=== PATIENT | female | born 1965 | race Hispanic/Latino ===

== ENCOUNTER 2016-05-23 13:43 | Observation (INO) | payer SELFPAY ==
[~2016-05-23] VITALS: Ht 165.1 cm; Wt 88.5 kg
[~2016-05-23 13:43] MED LIST: ASPIR-TRIN325 M1 PO; Atarax,Vistaril PO; BIOTIN5 MG PO; EFFEXOR75 MG PO; FLEXERIL10 MG PO; GEODON40 MG PO; LAMISIL250 MG PO; LEXAPRO10 MG PO; LOPRESSOR25 MG PO; MOTRIN600 MG PO; Pepcid PO; VICODIN,LORT1 TABLET PO; VITAMIN B-121000 MCG PO; ZANTAC150 M1 PO
[2016-05-23 15:43] LABS: HEMATOCRIT 36.2 % (36.0-46.0); MCH 24.8 PG (29.0-34.0); MCHC 32.3 G/DL (30.0-36.0); MCV 76.9 FL (83-99); MEAN PLAT.VOLUME 10.7 uM^3 (9.5-12.4); PLATELET COUNT 325 K/uL (156-360); RBC DIS.WIDTH-CV 13.4 % (11.8-14.6); RBC DIS.WIDTH-SD 36.7 % (39-53); RED BLOOD COUNT 4.71 M/uL (3.80-5.20); WHITE BLOOD COUNT 9.2 K/uL (4.1-10.2)
[2016-05-23 15:56] LABS: CHLORIDE 108 mEq/L (99-109); POTASSIUM 3.7 mEq/L (3.7-5.4); SODIUM 139 mEq/L (136-147)
[2016-05-23 15:57] LABS: GLUCOSE 136 mg/dL (70-99)
[2016-05-23 15:59] LABS: ANION GAP 9 MEQ/L (2-14)
[2016-05-23 16:01] LABS: GFR ESTIMATE (CALCULATED) > 59 mL/min/
[2016-05-23 16:02] LABS: TROP-I INTERPRETATION NEGATIVE; TROPONIN-I < 0.01 ng/mL (0.0-0.30); UREA NITROGEN (BUN) 9 mg/dL (9-23)
[2016-05-23] MEDS ORDERED: TYLENOL EXTRA500 MG PO (19:31)
[2016-05-23] MEDS ORDERED: B COMPLETE1 EACH PO (19:31)
[2016-05-23 22:38] VITALS: BP 174/79
[2016-05-23 23:09] LABS: TROP-I INTERPRETATION NEGATIVE; TROPONIN-I < 0.01 ng/mL (0.0-0.30)
[2016-05-24 04:14] VITALS: BP 160/84
[2016-05-24 05:35] LABS: TROP-I INTERPRETATION NEGATIVE; TROPONIN-I < 0.01 ng/mL (0.0-0.30)
[2016-05-24 05:55] LABS: HDL CHOLESTEROL 52 MG/DL (Desirable>=50); LDL CHOLESTEROL 66 mg/dL (Desirable<100); NON-HDL CHOLESTEROL 105 mg/dL (Desirable<160); TOTAL CHOLESTEROL 157 mg/dL (Desirable<200); TRIGLYCERIDES 194 MG/DL (Normal: <150)
[2016-05-24 06:23] VITALS: BP 142/88
[2016-05-24 07:00] LABS: Estimated Average Glucose 140 mg/dL (70-123); HEMOGLOBIN A1c (GLYCOHEMOGLOB) 6.5 % HGB (Below 5.7)
[2016-05-24 07:45] VITALS: BP 154/79
[2016-05-24] MEDS ORDERED: PERCOCET 5/31 TABLET PO (08:34)
[2016-05-24 08:58] LABS: POINT-OF-CARE METER ID UU13113700
== END 2016-05-24 10:16 | disposition home or self-care (01) ==
LOC: EME 13:43 → EDOF 20:58 → 5WEST 22:14
PROVIDERS: Internal Medicine; Physician Assistant Medical
DX: R07.89 Other chest pain (principal); E11.65 Type 2 diabetes mellitus with hyperglycemia; I10 Essential (primary) hypertension; Z82.49 Family history of ischemic heart disease and other diseases of the circulatory system; R53.83 Other fatigue; R42 Dizziness and giddiness; R51 Headache; Z91.14 Patient's other noncompliance with medication regimen
CPT/HCPCS: 71020; 80048; 80061; 82948; 83036; 84484; 85027; 93005; 99281; 99285; G0378; J1200; J1650; J1815; J1885

== ENCOUNTER 2017-07-03 19:49 | Emergency (ER) | payer BC ==
[~2017-07-03] VITALS: Ht 165.1 cm; Wt 85.5 kg
[~2017-07-03 19:49] MED LIST changes: +B COMPLETE1 EACH PO; +PERCOCET 5/31 TABLET PO; +TYLENOL EXTRA500 MG PO
[2017-07-03 20:14] LABS: PTT 28.6 SEC (25-37)
[2017-07-03 20:24] LABS: AMYLASE 55 IU/L (1-118)
[2017-07-03 20:33] LABS: LIPASE 45 U/L (1.0-51.0)
[2017-07-03 20:38] LABS: TROP-I INTERPRETATION NEGATIVE; TROPONIN-I < 0.01 ng/mL (0.0-0.30)
[2017-07-03 21:04] LABS: HEMATOCRIT 33.2 % (36.0-46.0); HEMOGLOBIN 10.6 G/DL (11.9-15.5); MCH 25.5 PG (29.0-34.0); MCHC 31.9 G/DL (30.0-36.0); PLATELET COUNT 331 K/uL (156-360); RBC DIS.WIDTH-CV 13.8 % (11.8-14.6); RBC DIS.WIDTH-SD 39.6 % (39-53); RED BLOOD COUNT 4.15 M/uL (3.80-5.20)
[2017-07-03 21:33] LABS: CHLORIDE 106 mEq/L (99-109); POTASSIUM 3.7 mEq/L (3.7-5.4); SODIUM 136 mEq/L (136-147)
[2017-07-03 21:34] LABS: GLUCOSE 99 mg/dL (70-99)
[2017-07-03 21:38] LABS: CREATININE 0.7 mg/dL (0.6-1.3); GFR ESTIMATE (CALCULATED) > 59 mL/min/
[2017-07-03 21:39] LABS: UREA NITROGEN (BUN) 18 mg/dL (9-23)
[2017-07-03 22:18] LABS: AMPHETAMINE NEGATIVE (500 ng/mL); BARBITURATES NEGATIVE (200 ng/mL); BENZODIAZEPINES NEGATIVE (150 ng/mL); BUPRENORPHINE NEGATIVE (10 ng/mL); COCAINE NEGATIVE (150 ng/mL); METHADONE NEGATIVE (200 ng/mL); METHAMPHETAMINE NEGATIVE (500 ng/mL); OPIATES (MORPHINE) NEGATIVE (100 ng/mL); OXYCODONE NEGATIVE (100 ng/mL); PHENCYCLIDINE NEGATIVE (25 ng/mL); PROPOXYPHENE NEGATIVE (300 ng/mL); THC CANNABINOIDS NEGATIVE (50 ng/mL); TRICYCLIC ANTIDEPRESSANTS NEGATIVE (300 ng/mL)
[2017-07-04 03:05] VITALS: BP 110/58
== END 2017-07-04 03:06 | disposition designated cancer center or children's hospital, planned readmission (85) ==
LOC: EME 19:49
PROVIDERS: Emergency Medicine
DX: R55 Syncope and collapse (principal); R51 Headache; R47.01 Aphasia; R42 Dizziness and giddiness; R29.706 NIHSS score 6
CPT/HCPCS: 70450; 70496; 70498; 80048; 80048 91; 82150; 82948; 83690; 84484; 85027; 85610; 85730; 99281; 99285; J2405; J2997

== ENCOUNTER 2017-07-23 09:33 | Emergency (ER) | payer OTHER, BC ==
[~2017-07-23] VITALS: Ht 160 cm; Wt 85.3 kg
[2017-07-23] MEDS ORDERED: MOTRIN800 MG PO (09:45)
[2017-07-23 10:05] VITALS: BP 133/69
== END 2017-07-23 10:07 | disposition home or self-care (01) ==
LOC: EME 09:33
DX: S20.211A Contusion of right front wall of thorax, initial encounter (principal); W01.0XXA Fall on same level from slipping, tripping and stumbling without subsequent striking against object, initial encounter; Y99.0 Civilian activity done for income or pay
CPT/HCPCS: 99281; 99284